=== PATIENT | female | born 1960 | race Caucasian/White ===

== ENCOUNTER → 2017-01-20 | Outpatient (CLI) | payer OTHER ==
[~2017-01-20] MED LIST: BUSP10TA71 PO; DESV50TA PO; GABA100C PO; LISI-126 PO; QUET400T PO
== END ==
LOC: WC.BC 10:03
DX: Z12.31 Encounter for screening mammogram for malignant neoplasm of breast (principal); R92.8 Other abnormal and inconclusive findings on diagnostic imaging of breast

== ENCOUNTER → 2017-01-25 | Outpatient (CLI) | payer OTHER | LOC: IMA 10:01 | PROVIDERS: ATTEND Nurse Practitioner Family | DX: N60.02 Solitary cyst of left breast (principal); R92.2 Inconclusive mammogram ==